=== PATIENT | female | born 1955 | race Two or more races ===

== ENCOUNTER 2021-10-19 20:30 | Inpatient (IN) | payer MEDICAID ==
[~2021-10-19] VITALS: Ht 154.9 cm; Wt 75.1 kg
--- NOTE | 2021-10-19 20:36 | NUR ---
[place] MACHINE OPERATORAVIONICS SYSTEMS INTEGRATION SPECIALIST NOTE PATIENT BROUGHT IN BY EMT AT THIS TIME DIRECT ADMIT VIA GURPRINCESS. SkyeOX4. NO S/S OF APPARENT DISTRESS ON ROOM AIR. DENIES PAIN AND DISCOMFORT. PATIENT ACCOMPANIED BY 2 SONS. PATIENT WISHES TO BE FULL CODE. DENIES SMOKING AND ALCOHOL. DENIES ANY ALLERGIES. ID BAND ON PATIENT. BELONGINGS CHECKED AND CHARTED-- SIGNED BY SON. V/S FOLLOWS: 128/73, T-98.3, HR-65, RR-18, SATURATION 96%. TELE MONITOR READING SR 61. R. AC PATENT AND INTACT JUST ON SALINE LOCK. WILL FOLLOW THROUGH DOCTOR'S ORDERS.
[2021-10-19] MEDS ORDERED: ALPRAZOLAM 0.25 MG TABLET PO PRN (21:00)
[2021-10-19] MEDS ORDERED: LABETALOL 20 MG/4 ML VIAL IV PRN (21:00)
[2021-10-19] MEDS ORDERED: MORPHINE SULFATE INJ 2 MG/ML DISP.SYRIN IV PRN (21:00)
[2021-10-19] MEDS ORDERED: ONDANSETRON HCL/PF 4 MG/2 ML VIAL IVP PRN (21:00)
--- NOTE | 2021-10-19 21:30 | NUR ---
RADIO ENGINEERING TEACHER NOTE GRANDDAUGHTEROLGA CALLED REGARDING PATIENT AND SAID PROCEDURE. PER GRANDDAUGHTER SHE WANTS TO BE CALLED WHEN DOCTOR EXPLAIN THE PROCEDURE TO THE PATIENT. GRANDDAUGHTER'S NUMBER . WILL ENDORSE THIS TO MORNING SHIFT RN.
[2021-10-19 21:35] VITALS: BP 128/73
[2021-10-19] MEDS: IBUPROFEN 400 MG TABLET PO SCH (22:16)
[2021-10-19] MEDS: METOPROLOL TARTRATE 50 MG TABLET PO SCH (22:16)
[2021-10-19] MEDS: ATORVASTATIN 10 MG TABLET PO SCH (22:17)
[2021-10-19] MEDS: ENOXAPARIN SODIUM 40 MG/0.4 ML DISP.SYRIN SQ SCH (22:19)
[2021-10-20 01:03] VITALS: BP 95/55
--- NOTE | 2021-10-20 03:43 | NUR ---
GEEK SQUAD MANAGER NOTE MRSA SWAB DONE AT THIS TIME. COVID ANTIGEN ORDERED.
[2021-10-20 04:18] VITALS: BP 106/68
[2021-10-20] MEDS: METOPROLOL TARTRATE 50 MG TABLET PO SCH ×3 (05:00→20:55)
[2021-10-20 06:33] LABS: BASOPHILS # (AUTO) 0.1 K/uL (0.0-0.2); BASOPHILS % (AUTO) 0.7 % (0.0-2.0); EOSINOPHILS % (AUTO) 2.8 % (0.0-6.0); HEMATOCRIT 42 % (33-45); LYMPHOCYTES # (AUTO) 2.1 K/uL (0.8-4.8); LYMPHOCYTES % (AUTO) 22.9 % (20.0-44.0); MEAN CORPUSCULAR HGB CONC 34 g/dl (31.0-36.0); MEAN CORPUSCULAR VOLUME 89 fL (82-100); MONOCYTES # (AUTO) 0.6 K/uL (0.1-1.30); MONOCYTES % (AUTO) 6.3 % (2.0-12.0); NEUTROPHILS # (AUTO) 6.2 K/uL (1.8-8.9); NEUTROPHILS % (AUTO) 67.3 % (43.0-81.0); PLATELET COUNT (AUTO) 191 K/uL (150-450); RED BLOOD CELL COUNT(AUTO) 4.67 MIL/uL (4.0-5.2); WHITE BLOOD COUNT (AUTO) 9.2 K/uL (4.3-11.0)
--- NOTE | 2021-10-20 07:30 | NUR ---
CLIP LOADING MACHINE FEEDER OPENING NOTES RECEIVED PATIENT ON BED AWAKE AND A/O X4. ON ROOM AIR TOLERATING WELL. NO SOB NOTED. NOT IN DISTRESS. WITH NO COMPLAINTS OF PAIN OR DISCOMFORT AT THIS TIME. WITH IV ACCESS AT RIGHT AC G20 SALINE LOCKED, PATENT AND INTACT. SAFETY MEASURES IN PLACED. CALL LIGHT WITHIN REACH. BED ON LOWEST LOCKED POSITION, SIDE RAILS UP X2. WILL CONTINUE TO MONITOR.
--- NOTE | 2021-10-20 07:35 | NUR ---
ms rn note no significant change. report given to kaveh for continuity of care.
[2021-10-20 07:56] LABS: ALBUMIN 3.9 g/dL (3.4-5.0); BILIRUBIN,TOTAL 0.4 mg/dL (0.2-1.0); CALCIUM, SERUM 9.1 mg/dL (8.5-10.1); CREATININE 1.5 mg/dL (0.6-1.3); MAGNESIUM 2.5 mg/dL (1.8-2.4); PHOSPHORUS 5.2 mg/dL (2.5-4.9); POTASSIUM 4.4 mmol/L (3.5-5.1); TOTAL PROTEIN, SERUM 8.3 g/dL (6.4-8.2)
[2021-10-20 08:00] VITALS: BP 107/75
[2021-10-20] MEDS: LEVOTHYROXINE SODIUM 125 MCG TABLET PO SCH (09:45)
[2021-10-20] MEDS: PANTOPRAZOLE 40 MG TABLET.DR PO SCH (09:45)
[2021-10-20] MEDS: IBUPROFEN 400 MG TABLET PO SCH ×3 (09:45→16:16)
[2021-10-20] MEDS: COLCHICINE 0.6 MG TABLET PO SCH ×2 (09:45→16:16)
[2021-10-20 12:00] VITALS: BP 105/70
[2021-10-20] MEDS ORDERED: LISI20TA PO (14:07)
[2021-10-20 16:00] VITALS: BP 131/79
[2021-10-20] MEDS: LISINOPRIL (20MG) 20 MG TABLET PO SCH (16:16)
--- NOTE | 2021-10-20 18:50 | NUR ---
DIE ATTACHING MACHINE TENDER CLOSING NOTES PATIENT ON BED AWAKE AND A/O X4. ON ROOM AIR TOLERATING WELL. NO SOB NOTED. NOT IN DISTRESS. WITH NO COMPLAINTS OF PAIN OR DISCOMFORT AT THIS TIME. WITH IV ACCESS AT RIGHT AC G20 SALINE LOCKED, PATENT AND INTACT. DUE MEDS GIVEN. ON TELE MONITOR CURRENTLY READING SINUS BRADYCARDIA AT 58BPM. SAFETY MEASURES IN PLACED. CALL LIGHT WITHIN REACH. BED ON LOWEST LOCKED POSITION, SIDE RAILS UP X2. WILL ENDORSE TO NEXT SHIFT FOR BRE.
--- NOTE | 2021-10-20 19:24 | NUR ---
INDUSTRIAL TECHNICIAN OPENING NOTES RECEIVED PT AWAKE IN BED. A/O X4. PT STABLE ON ROOM AIR. NO SOB OR S/S OF RESPIRATORY DISTRESS NOTED. IV ACCESS RIGHT AC 20 GAUGE SL, INTACT AND PATENT. ON EXTERNAL NURSERY SUPERVISOR CURRENTLY READING SINUS BRADYCARDIA AT 58 BPM. SAFETY PRECAUTIONS IN PLACE. BED IN LOWEST LOCKED POSITION, HOB ELEVATED, SIDE RAILS UP X3, CALL LIGHT AND TABLE WITHIN REACH. WILL CONTINUE WITH PLAN OF CARE.
[2021-10-20 20:00] VITALS: BP 115/66
[2021-10-20] MEDS: ENOXAPARIN SODIUM 40 MG/0.4 ML DISP.SYRIN SQ SCH (21:00)
--- NOTE | 2021-10-20 21:55 | NUR ---
RN NOTE HELD LOVENOX FOR UPCOMING PROCEDURE.
[2021-10-20] MEDS: ATORVASTATIN 10 MG TABLET PO SCH (21:56)
[2021-10-21] VITALS (10 sets, daily range): BP systolic 96–147; BP diastolic 44–111
[2021-10-21] MEDS ORDERED: IV NS 0.9% 1,000 ML IV ONE
[2021-10-21] MEDS: METOPROLOL TARTRATE 50 MG TABLET PO SCH ×3 (04:30→20:23)
--- NOTE | 2021-10-21 06:54 | NUR ---
SUPPLY CHAIN DIRECTOR CLOSING NOTES PT AWAKE IN BED. A/O X4. PT STABLE ON ROOM AIR. NO SOB OR S/S OF RESPIRATORY DISTRESS NOTED. IV ACCESS RIGHT AC 20 GAUGE RUNNING NS @ 100 ML/HR, INTACT AND PATENT. ON EXTERNAL RAMP SERVICE MAN CURRENTLY READING SINUS BRADYCARDIA AT 58 BPM. SAFETY PRECAUTIONS IN PLACE AT ALL TIMES. BED IN LOWEST LOCKED POSITION, HOB ELEVATED, SIDE RAILS UP X3, CALL LIGHT AND TABLE WITHIN REACH. WILL ENDORSE TO ONCOMING NURSE FOR BRE.
[2021-10-21 07:18] LABS: BASOPHILS # (AUTO) 0.1 K/uL (0.0-0.2); BASOPHILS % (AUTO) 0.9 % (0.0-2.0); EOSINOPHILS % (AUTO) 3.5 % (0.0-6.0); HEMATOCRIT 41 % (33-45); HEMOGLOBIN 13.9 g/dL (11.5-14.8); LYMPHOCYTES # (AUTO) 1.9 K/uL (0.8-4.8); LYMPHOCYTES % (AUTO) 29.6 % (20.0-44.0); MEAN CORPUSCULAR HGB CONC 34 g/dl (31.0-36.0); MEAN CORPUSCULAR VOLUME 89 fL (82-100); MONOCYTES # (AUTO) 0.5 K/uL (0.1-1.30); MONOCYTES % (AUTO) 7.9 % (2.0-12.0); NEUTROPHILS # (AUTO) 3.8 K/uL (1.8-8.9); NEUTROPHILS % (AUTO) 58.1 % (43.0-81.0); PLATELET COUNT (AUTO) 181 K/uL (150-450); RED BLOOD CELL COUNT(AUTO) 4.64 MIL/uL (4.0-5.2); WHITE BLOOD COUNT (AUTO) 6.5 K/uL (4.3-11.0)
--- NOTE | 2021-10-21 07:35 | NUR ---
RECORD LABEL INTERN OPENING NOTE Patient in bed, awake. A/O x 4, Kazakh speaking. On room air, breathing evenly and unlabored. No SOB or s/s of distress noted. IV access on RAC #20G infusing NS at 100 ml/hr. On tele monitoring showing Sinus bradycardia, HR 58. Safety precautions in place: bed in low, locked position; siderails up x 2; call light within reach. Will continue to monitor.
[2021-10-21 07:45] LABS: ALBUMIN 3.6 g/dL (3.4-5.0); BILIRUBIN,TOTAL 0.3 mg/dL (0.2-1.0); CALCIUM, SERUM 8.9 mg/dL (8.5-10.1); CREATININE 1.6 mg/dL (0.6-1.3); MAGNESIUM 2.3 mg/dL (1.8-2.4); PHOSPHORUS 5.3 mg/dL (2.5-4.9); POTASSIUM 4.3 mmol/L (3.5-5.1); TOTAL PROTEIN, SERUM 7.9 g/dL (6.4-8.2)
[2021-10-21] MEDS: PANTOPRAZOLE 40 MG TABLET.DR PO SCH (09:12)
[2021-10-21] MEDS: LISINOPRIL (20MG) 20 MG TABLET PO SCH ×2 (09:13→17:24)
[2021-10-21] MEDS: LEVOTHYROXINE SODIUM 125 MCG TABLET PO SCH (09:13)
--- NOTE | 2021-10-21 09:30 | NUR ---
RN NOTE Patient's IV site is leaking, IV access removed. New IV inserted on Left wrist #22G. Addendum: 10/21/21 at 1304 by PRINCE ESCALANTE RN CORRECTION: Left hand #22G
--- NOTE | 2021-10-21 11:30 | NUR ---
RN NOTE Patient brought to cath lab nurse for procedure.
[2021-10-21] MEDS ORDERED: NITROGLYCERIN 0.4 MG/TAB BOTTLE ONE (16:30)
[2021-10-21] MEDS ORDERED: IOHEXOL-350 100 ML VIAL IV ONE (16:32)
[2021-10-21] MEDS ORDERED: CT SWABBABLE VALVE TRANS SET 1 EA INFUS.SET MC ONE (16:32)
--- NOTE | 2021-10-21 16:48 | NUR ---
Received in CT ROOM at 1600 hrs. Procedure explained in Colombian and expressed understanding. All questions answered. Procedure started at 1620 hrs. Tolerated well. Completed at 1630 with no untoward reactions.
[2021-10-21] MEDS ORDERED: HEPARIN-LOCK FLUSH PORCINE PF 100 UNITS/1 ML (10 ML)DISP.SYRIN IV SCH (17:00)
--- NOTE | 2021-10-21 19:00 | NUR ---
OIL FIELD LABORER NOTE RECEIVED PATIENT IN BED RESTING ALERT ORIENTED X4 VERBALLY RESPONSIVE ON ROOM AIR O2:94% IV SITE IS ON RIGHT WRIST AND LEFT HAND INTACT PATENT, PERICARDIAL DRAIN INTACT,CONTIENT BOWEL/BLADDER,SAFETY MEASURE IMPLEMENT,BED IN LOW POSITON AND LOCKED,CALL LIGHT WITHIN REACH,HEAD OF THE BED ELEVATED,CONTINUE TO MONITOR.
--- NOTE | 2021-10-21 19:42 | NUR ---
RN NOTES PT FOUND SEMI FOWLERS DISPLAYING NO S/S OF DISTRESS, PT ENDORSES NO PAIN AND IS BREATHING EVEN AND UNLABORED ON RA. PT PERICARDIAL DRAIN IS INTACT, HEPARIN FLUSH GIVEN PER FIELD SALES TRAINER AND TAGEDERM APPLIED. DRESSING IS FREE OF BLOOD OR ANY BODY FLUID. R WRIST 20G L HAND 22G ARE PATIENT AND INTACT. SBAR AND REPORT GIVEN TO CINEMA OR THEATRE MANAGER RN, ALL QUESTIONS ANSWERED. SAFETY MEASURES IN PLACE, BED LOCKED AND IN LOWEST POSITION, SIDE RAILS UPX2, CALL LIGHT WITHIN REACH, PT INSTRUCTED TO CALL FOR ASSISTANCE.
[2021-10-21] MEDS: ENOXAPARIN SODIUM 40 MG/0.4 ML DISP.SYRIN SQ SCH (20:26)
[2021-10-21] MEDS: ATORVASTATIN 10 MG TABLET PO SCH (21:36)
[2021-10-22] VITALS (24 sets, daily range): BP systolic 107–149; BP diastolic 58–101
[2021-10-22] MEDS: HEPARIN-LOCK FLUSH PORCINE PF 100 UNITS/1 ML (10 ML)DISP.SYRIN IV SCH ×4 (01:06→20:14)
[2021-10-22 04:28] LABS: BASOPHILS % (AUTO) 0.7 % (0.0-2.0); EOSINOPHILS % (AUTO) 2.2 % (0.0-6.0); HEMATOCRIT 44 % (33-45); HEMOGLOBIN 15.4 g/dL (11.5-14.8); LYMPHOCYTES # (AUTO) 1.9 K/uL (0.8-4.8); MEAN CORPUSCULAR HGB CONC 35 g/dl (31.0-36.0); MEAN CORPUSCULAR VOLUME 87 fL (82-100); MONOCYTES # (AUTO) 0.5 K/uL (0.1-1.30); MONOCYTES % (AUTO) 6.9 % (2.0-12.0); NEUTROPHILS # (AUTO) 4.7 K/uL (1.8-8.9); NEUTROPHILS % (AUTO) 64.2 % (43.0-81.0); PLATELET COUNT (AUTO) 190 K/uL (150-450); RED BLOOD CELL COUNT(AUTO) 5.11 MIL/uL (4.0-5.2); WHITE BLOOD COUNT (AUTO) 7.3 K/uL (4.3-11.0)
[2021-10-22] MEDS: METOPROLOL TARTRATE 50 MG TABLET PO SCH ×3 (05:01→21:05)
[2021-10-22 05:08] LABS: ALBUMIN 3.7 g/dL (3.4-5.0); BILIRUBIN,TOTAL 0.6 mg/dL (0.2-1.0); CALCIUM, SERUM 9.2 mg/dL (8.5-10.1); CREATININE 1.1 mg/dL (0.6-1.3); MAGNESIUM 2.2 mg/dL (1.8-2.4); PHOSPHORUS 4.5 mg/dL (2.5-4.9); TOTAL PROTEIN, SERUM 8.3 g/dL (6.4-8.2)
--- NOTE | 2021-10-22 06:48 | NUR ---
CLINICAL INFORMATICS SPEC NOTE PATIENT REMAINS ON ALERT ORIENTED X4 VERBALLY RESPONSIVE ON ROOM AIR NO SOB NOT ACUTE DISTRESS NOTED,PERICARDITICS DRAIN DRESSING INTACT,ALL DUE MEDS GIVEN MD ORDERED KEPT CLEAN AND DRY ALL THE TIME,KEPT CALL LIGHT WITHIN REACH,ALL NEEDS MET ENDORSE NEXT COMING SHIFT FOR CONTINUATION OF CARE.
--- NOTE | 2021-10-22 07:29 | NUR ---
RN OPENING NOTE PATIENT RECEIVED IN BED, AWAKE, A&OX4. PATIENT ON ROOM AIR WITH NO SIGNS OF LABORED BREATHING AT THIS TIME. LEFT HAND AND RIGHT WRIST IV SL IN PLACE WITH NO SIGNS OF INFILTRATION AT THIS TIME. PERICARDITIS DRAIN IN PLACE, DRAINED 300 CC OVERNIGHT. BED LOCKED AND IN LOWEST POSITION, CALL LIGHT WITHIN REACH, 2 SIDE RAILS UP. WILL CONTINUE TO MONITOR.
[2021-10-22] MEDS: PANTOPRAZOLE 40 MG TABLET.DR PO SCH (08:04)
[2021-10-22] MEDS: LEVOTHYROXINE SODIUM 125 MCG TABLET PO SCH (08:04)
[2021-10-22] MEDS: LISINOPRIL (20MG) 20 MG TABLET PO SCH ×2 (08:05→16:27)
--- NOTE | 2021-10-22 18:45 | NUR ---
RN CLOSING NOTE PATIENT REMAINS IN BED, AWAKE, A&OX4. PATIENT ON ROOM AIR WITH NO SIGNS OF LABORED BREATHING AT THIS TIME. LEFT HAND AND RIGHT WRIST IV SL IN PLACE WITH NO SIGNS OF INFILTRATION AT THIS TIME. PERICARDITIS DRAIN IN PLACE, DRAINED 150 CC THROUGHOUT SHIFT, PATENT TO FLUSH SCHEDULED EARLIER. ALL NEEDS ATTENDED DURING SHIFT, NO SIGNS OF DISTRESS NOTED. BED LOCKED AND IN LOWEST POSITION, CALL LIGHT WITHIN REACH, 2 SIDE RAILS UP. WILL ENDORSE TO DINING SERVICES DIRECTOR NURSE.
[2021-10-22] MEDS: ENOXAPARIN SODIUM 40 MG/0.4 ML DISP.SYRIN SQ SCH (20:14)
[2021-10-22] MEDS: ATORVASTATIN 10 MG TABLET PO SCH (21:05)
[2021-10-23] VITALS (25 sets, daily range): BP systolic 93–140; BP diastolic 26–83
[2021-10-23 04:24] LABS: BASOPHILS # (AUTO) 0.1 K/uL (0.0-0.2); BASOPHILS % (AUTO) 0.5 % (0.0-2.0); EOSINOPHILS % (AUTO) 1.1 % (0.0-6.0); HEMATOCRIT 45 % (33-45); HEMOGLOBIN 15.5 g/dL (11.5-14.8); LYMPHOCYTES # (AUTO) 3.1 K/uL (0.8-4.8); LYMPHOCYTES % (AUTO) 26.6 % (20.0-44.0); MEAN CORPUSCULAR HGB CONC 35 g/dl (31.0-36.0); MEAN CORPUSCULAR VOLUME 87 fL (82-100); MONOCYTES % (AUTO) 8.2 % (2.0-12.0); NEUTROPHILS # (AUTO) 7.5 K/uL (1.8-8.9); NEUTROPHILS % (AUTO) 63.6 % (43.0-81.0); PLATELET COUNT (AUTO) 183 K/uL (150-450); RED BLOOD CELL COUNT(AUTO) 5.15 MIL/uL (4.0-5.2); WHITE BLOOD COUNT (AUTO) 11.8 K/uL (4.3-11.0)
[2021-10-23 04:42] LABS: ALBUMIN 3.2 g/dL (3.4-5.0); BILIRUBIN,TOTAL 0.8 mg/dL (0.2-1.0); CALCIUM, SERUM 8.7 mg/dL (8.5-10.1); MAGNESIUM 1.9 mg/dL (1.8-2.4); PHOSPHORUS 3.9 mg/dL (2.5-4.9); POTASSIUM 3.7 mmol/L (3.5-5.1); TOTAL PROTEIN, SERUM 7.9 g/dL (6.4-8.2)
[2021-10-23] MEDS: HEPARIN-LOCK FLUSH PORCINE PF 100 UNITS/1 ML (10 ML)DISP.SYRIN IV SCH ×3 (05:32→21:18)
[2021-10-23] MEDS: METOPROLOL TARTRATE 50 MG TABLET PO SCH ×3 (06:05→21:16)
--- NOTE | 2021-10-23 07:18 | NUR ---
RN OPENING NOTE PATIENT RECEIVED IN BED, AWAKE, A&OX4. PATIENT ON ROOM AIR WITH NO SIGNS OF LABORED BREATHING AT THIS TIME. LEFT HAND AND RIGHT WRIST IV SL IN PLACE WITH NO SIGNS OF INFILTRATION AT THIS TIME. PERICARDITIS DRAIN IN PLACE, DRAINED 100 CC OVERNIGHT. BED LOCKED AND IN LOWEST POSITION, CALL LIGHT WITHIN REACH, 2 SIDE RAILS UP. WILL CONTINUE TO MONITOR.
[2021-10-23] MEDS: LISINOPRIL (20MG) 20 MG TABLET PO SCH ×2 (08:05→16:27)
[2021-10-23] MEDS: PANTOPRAZOLE 40 MG TABLET.DR PO SCH (08:05)
[2021-10-23] MEDS: LEVOTHYROXINE SODIUM 125 MCG TABLET PO SCH (08:05)
--- NOTE | 2021-10-23 15:00 | NUR ---
RN NOTE DRAINAGE BAG CHANGED PER MD HOWELL REQUEST. WILL CONTINUE TO MONITOR.
--- NOTE | 2021-10-23 18:34 | NUR ---
RN CLOSING NOTE PATIENT REMAINS IN BED, AWAKE, A&OX4. PATIENT ON ROOM AIR WITH NO SIGNS OF LABORED BREATHING AT THIS TIME. LEFT HAND AND RIGHT WRIST IV SL IN PLACE WITH NO SIGNS OF INFILTRATION AT THIS TIME. PERICARDITIS DRAIN IN PLACE, DRAINED 50 CC THROUGHOUT SHIFT. ALL NEEDS ATTENDED DURING SHIFT, NO SIGNS OF DISTRESS NOTED. BED LOCKED AND IN LOWEST POSITION, CALL LIGHT WITHIN REACH, 2 SIDE RAILS UP. WILL ENDORSE TO ENGINEERING SPECIALIST TECHNICIAN NURSE.
[2021-10-23] MEDS: ATORVASTATIN 10 MG TABLET PO SCH (21:16)
[2021-10-23] MEDS: ENOXAPARIN SODIUM 40 MG/0.4 ML DISP.SYRIN SQ SCH (21:17)
[2021-10-24] VITALS (17 sets, daily range): BP systolic 96–136; BP diastolic 35–87
[2021-10-24] MEDS: ACETAMINOPHEN 325 MG TABLET PO PRN (02:33)
[2021-10-24 04:55] LABS: BASOPHILS # (AUTO) 0.1 K/uL (0.0-0.2); BASOPHILS % (AUTO) 0.9 % (0.0-2.0); EOSINOPHILS % (AUTO) 4.7 % (0.0-6.0); HEMATOCRIT 45 % (33-45); HEMOGLOBIN 15.5 g/dL (11.5-14.8); LYMPHOCYTES # (AUTO) 2.8 K/uL (0.8-4.8); LYMPHOCYTES % (AUTO) 31.1 % (20.0-44.0); MEAN CORPUSCULAR HGB CONC 34 g/dl (31.0-36.0); MEAN CORPUSCULAR VOLUME 88 fL (82-100); MONOCYTES # (AUTO) 0.6 K/uL (0.1-1.30); MONOCYTES % (AUTO) 6.9 % (2.0-12.0); NEUTROPHILS # (AUTO) 5.1 K/uL (1.8-8.9); NEUTROPHILS % (AUTO) 56.4 % (43.0-81.0); PLATELET COUNT (AUTO) 184 K/uL (150-450); RED BLOOD CELL COUNT(AUTO) 5.15 MIL/uL (4.0-5.2)
[2021-10-24] MEDS: METOPROLOL TARTRATE 50 MG TABLET PO SCH (05:00)
[2021-10-24 05:23] LABS: ALBUMIN 3.1 g/dL (3.4-5.0); BILIRUBIN,TOTAL 0.5 mg/dL (0.2-1.0); CALCIUM, SERUM 8.8 mg/dL (8.5-10.1); CREATININE 0.9 mg/dL (0.6-1.3); MAGNESIUM 1.9 mg/dL (1.8-2.4); PHOSPHORUS 3.9 mg/dL (2.5-4.9); POTASSIUM 3.9 mmol/L (3.5-5.1); TOTAL PROTEIN, SERUM 7.4 g/dL (6.4-8.2)
[2021-10-24] MEDS: HEPARIN-LOCK FLUSH PORCINE PF 100 UNITS/1 ML (10 ML)DISP.SYRIN IV SCH (05:29)
--- NOTE | 2021-10-24 07:47 | NUR ---
ICU/RN PATIENT RECEIVED IN BED, AWAKE, A&OX4. PATIENT ON ROOM AIR WITH NO SIGNS OF LABORED BREATHING AT THIS TIME. LEFT HAND IV SL IN PLACE WITH NO SIGNS OF INFILTRATION AT THIS TIME. PERICARDITIS DRAIN IN PLACE. BED LOCKED AND IN LOWEST POSITION, CALL LIGHT WITHIN REACH, 2 SIDE RAILS UP. WILL CONTINUE TO MONITOR. LABS REVIEW. AWARE.
[2021-10-24] MEDS: PANTOPRAZOLE 40 MG TABLET.DR PO SCH (07:56)
[2021-10-24] MEDS: LEVOTHYROXINE SODIUM 125 MCG TABLET PO SCH (07:56)
[2021-10-24] MEDS: IBUPROFEN 400 MG TABLET PO SCH ×3 (08:41→16:32)
[2021-10-24] MEDS: LISINOPRIL (20MG) 20 MG TABLET PO SCH ×2 (08:42→16:32)
--- NOTE | 2021-10-24 09:20 | NUR ---
ICU/RN DUE MEDS ARE GIVEN ORDERED.PT EATS 100% FROM HER MEAL TRAY.CONTINUE MONITORING.
--- NOTE | 2021-10-24 10:00 | NUR ---
ICU/RN PERICARDIAL DRAINAGE CATHETER REMOVED BY DR HOWELL. NO S/S OF BLEEDING NOTED.COVERED WITH DRESSING.FLUIDS SEND TO THE LAB.
--- NOTE | 2021-10-24 13:55 | NUR ---
ICU/RN V/S STABLE,AFEBRILE.NO PAIN REPORTED AT THIS TIME.PT TRANSFERRED TO TELE UNIT ORDERED, IN STABLE CONDITION .
--- NOTE | 2021-10-24 14:10 | NUR ---
LOAN AUDITOR OPENING NOTES RECEIVED Pt IN BED A/Ox4. VITAL SIGNS ARE BP IS :114/56, HR IS 67, RR IS 18, TEMP WAS 98.2. NPt IS ON RA AND TOLERATING WELL NO COMPLAINTS OF PAIN AND NO SIGNS OF DISTRESS AT THIS TIME. SAFEY MEASURES ARE IN PLACE: BED IS LOCKED AND IN LOWEST POSITION, SIDE RAILS UPx3. BED SIDE TABLE ADN CALL LIGHT WITHIN REACH. WILL CONTINUE TO MONITOR
--- NOTE | 2021-10-24 18:31 | NUR ---
SHUTTLE THREADER CLOSING NOTES Pt IS AWAKE IN BED WITH FAMILY AT BEDSIDE. SHE IS A/Ox4 WITH NO COMPLAINTS OF PAIN AND NO SIGNS OF DISTRESS AT THIS TIME. SHE IS ON ROOM AIR AND TOLERATING WELL NO SIGNS OF RESPIRATORY DISTRESS. IV ACCESS ON L HAND IS PATENT AND INTACT. SAFETY MEASURES ARE IN PLACE: BED IS LOCKED AND IN LOWEST POSITION, SIDE RAILS UPx2. BED SIDE TABLE AND CALL LIGHT ARE WITHIN REACH. WILL ENDORSE TO ONCOMING SHIFT.
--- NOTE | 2021-10-24 19:35 | NUR ---
RN NOTES RECEIVED PATIENT AWAKE ON BED, A/OX4, URDU SPEAKING, SR ON TELE MONITOR , HR-68, SON AT BEDSIDE, DENIES PAIN, NO SOB, CALL LIGHT WITHIN REACH, [id number], WILL CONTINUE TO MONITOR
[2021-10-24] MEDS: METOPROLOL TARTRATE 25 MG TABLET PO SCH (21:00)
[2021-10-24] MEDS: ENOXAPARIN SODIUM 40 MG/0.4 ML DISP.SYRIN SQ SCH (21:00)
[2021-10-24] MEDS: ATORVASTATIN 10 MG TABLET PO SCH (21:01)
[2021-10-25] VITALS: BP 102/57
[2021-10-25] MEDS: ACETAMINOPHEN 325 MG TABLET PO PRN ×2 (01:57→18:40)
[2021-10-25 05:00] VITALS: BP 109/59
[2021-10-25 06:07] LABS: BASOPHILS # (AUTO) 0.1 K/uL (0.0-0.2); BASOPHILS % (AUTO) 0.7 % (0.0-2.0); EOSINOPHILS % (AUTO) 6.7 % (0.0-6.0); HEMATOCRIT 43 % (33-45); HEMOGLOBIN 14.4 g/dL (11.5-14.8); LYMPHOCYTES % (AUTO) 37.6 % (20.0-44.0); MEAN CORPUSCULAR HGB CONC 34 g/dl (31.0-36.0); MEAN CORPUSCULAR VOLUME 87 fL (82-100); MONOCYTES # (AUTO) 0.4 K/uL (0.1-1.30); MONOCYTES % (AUTO) 5.5 % (2.0-12.0); NEUTROPHILS # (AUTO) 3.9 K/uL (1.8-8.9); NEUTROPHILS % (AUTO) 49.5 % (43.0-81.0); PLATELET COUNT (AUTO) 193 K/uL (150-450); RED BLOOD CELL COUNT(AUTO) 4.86 MIL/uL (4.0-5.2); WHITE BLOOD COUNT (AUTO) 7.8 K/uL (4.3-11.0)
--- NOTE | 2021-10-25 06:49 | NUR ---
RN NOTES COMPLAINED OF PAIN ON HER UPPER CHEST BUT DENIES CHEST PAIN, OFFERED MORPHINE BUT PT. REFUSED, MORNING CARE RENDERED, CALL LIGHT WITHIN REACH, [id number], PT. NEEDS ATTENDED
--- NOTE | 2021-10-25 07:30 | NUR ---
BAKERY MACHINE MECHANIC SUPERVISOR OPENING NOTES RECEIVED Pt IN BED A/Ox4. ABLE TO MAKE NEEDS KNOWN, NO COMPLAINTS OF PAIN AT THIS TIME, ON RA AND TOLERATING WELL, NO SIGNS OF DISTRESS AT THIS TIME. IV ACCESS ON LEFT HAND G#22, PATENT AND FLUSHES WELL. SAFETY MEASURES ARE IN PLACE: BED IS LOCKED AND IN LOWEST POSITION, SIDE RAILS UPx3. BED SIDE TABLE AND CALL LIGHT WITHIN REACH. WILL CONTINUE TO MONITOR PATIENT ACCORDINGLY. Addendum: 10/25/21 at 0748 by BONNIE BEAVERS RN ON TELE MONITOR READING SHOWING SINUS RHYTHM HR AT 79.
[2021-10-25] MEDS: IBUPROFEN 400 MG TABLET PO SCH ×3 (08:18→16:14)
[2021-10-25] MEDS: PANTOPRAZOLE 40 MG TABLET.DR PO SCH (08:18)
[2021-10-25] MEDS: METOPROLOL TARTRATE 25 MG TABLET PO SCH ×2 (08:18→21:53)
[2021-10-25] MEDS: LEVOTHYROXINE SODIUM 125 MCG TABLET PO SCH (08:18)
[2021-10-25] MEDS: LISINOPRIL (20MG) 20 MG TABLET PO SCH ×2 (08:19→16:14)
[2021-10-25 08:56] VITALS: BP 107/69
[2021-10-25 09:59] LABS: ALBUMIN 3.3 g/dL (3.4-5.0); BILIRUBIN,TOTAL 0.3 mg/dL (0.2-1.0); CALCIUM, SERUM 9.3 mg/dL (8.5-10.1); MAGNESIUM 2.3 mg/dL (1.8-2.4); PHOSPHORUS 4.5 mg/dL (2.5-4.9); TOTAL PROTEIN, SERUM 7.7 g/dL (6.4-8.2)
[2021-10-25 12:00] VITALS: BP_SYST 106; BP_SYST 120; BP_DIAS 64; BP_DIAS 70
--- NOTE | 2021-10-25 12:52 | NUR ---
RN NOTES FOLLOWED UP 2D ECHO AND SPOKE TO MELE. PER MELE, PATIENT HAD 2D ECHO DONE ON 10/22, SHE WOULD LIKE TO VERIFY WITH DR. HOWELL IF REPEAT TEST IS NEEDED. RELAYED MELE CONCERN TO DR. HOWELL. BUT ALSO INFORMED MELE THAT A REPEAT 2DECHO WAS ORDERED BY DR. HOWELL TO BE DONE TODAY FOR CARDIO CLEARANCE PRIOR TO DISCHARGE.
[2021-10-25 15:58] VITALS: BP 128/63
--- NOTE | 2021-10-25 18:25 | NUR ---
SAND MILL OPERATOR CORE SAND CLOSING NOTES PATIENT IN BED A/Ox4. ABLE TO MAKE NEEDS KNOWN, NO COMPLAINTS OF PAIN AT THIS TIME, ON RA AND TOLERATING WELL, NO SIGNS OF DISTRESS AT THIS TIME. IV ACCESS ON LEFT HAND G#22, PATENT AND FLUSHES WELL. SAFETY MEASURES ARE IN PLACE: BED IS LOCKED AND IN LOWEST POSITION, SIDE RAILS UPx3. BED SIDE TABLE AND CALL LIGHT WITHIN REACH. PATIENT IS CLEARED FOR DISCHARGE ON CARDIO STANDPOINT PER DR. HOWELL, FOLLOW UP IN [address] PALOMO MADE AWARE. ALL NEEDS ATTENDED AND MET. DUE MEDS GIVEN ORDERED. WILL ENDORSE TO ONCOMING SHIFT FOR BRE.
--- NOTE | 2021-10-25 19:35 | NUR ---
RN NOTES RECEIVED PATIENT AWAKE ON BED, A/OX4, ALBANIAN SPEAKING, SR ON TELE MONITOR HR-82, DENIES PAIN, NO SOB, CALL LIGHT WITHIN REACH, [id number], WILL CONTINUE TO MONITOR
[2021-10-25 20:00] VITALS: BP_SYST 108; BP_SYST 112; BP_DIAS 58; BP_DIAS 63
[2021-10-25] MEDS: ATORVASTATIN 10 MG TABLET PO SCH (21:52)
[2021-10-25] MEDS: ENOXAPARIN SODIUM 40 MG/0.4 ML DISP.SYRIN SQ SCH (21:53)
[2021-10-26] VITALS: BP 108/58
[2021-10-26 04:00] VITALS: BP 107/61
--- NOTE | 2021-10-26 06:38 | NUR ---
RN NOTES AWAKE, DENIES PAIN, NO SOB, CALL LIGHT WITHIN REACH, [id number], PT. NEEDS ATTENDED
--- NOTE | 2021-10-26 07:32 | NUR ---
CREAM BEATER OPENING NOTES RECEIVED PT IN BED A/Ox4. ABLE TO MAKE NEEDS KNOWN, NO COMPLAINTS OF PAIN AT THIS TIME, PATIENT IS BREATHING EVENLY AND NONLABORED. ON RA AND TOLERATING WELL, NO SIGNS OF DISTRESS AT THIS TIME. IV ACCESS ON LEFT HAND G#22, PATENT AND FLUSHES WELL. SAFETY MEASURES ARE IN PLACE: BED IS LOCKED AND IN LOWEST POSITION, SIDE RAILS UPx3. BED SIDE TABLE AND CALL LIGHT WITHIN REACH. WILL CONTINUE TO MONITOR
[2021-10-26] MEDS: IBUPROFEN 400 MG TABLET PO SCH ×2 (08:02→12:00)
[2021-10-26] MEDS: METOPROLOL TARTRATE 25 MG TABLET PO SCH (08:02)
[2021-10-26] MEDS: LEVOTHYROXINE SODIUM 125 MCG TABLET PO SCH (08:02)
[2021-10-26] MEDS: PANTOPRAZOLE 40 MG TABLET.DR PO SCH (08:02)
[2021-10-26] MEDS: LISINOPRIL (20MG) 20 MG TABLET PO SCH (08:03)
[2021-10-26 08:48] VITALS: BP 110/44
[2021-10-26] MEDS ORDERED: LISI20TA30 PO (10:16)
[2021-10-26] MEDS ORDERED: IBUP-1953 PO (10:16)
[2021-10-26] MEDS ORDERED: ATOR10TA PO (10:16)
[2021-10-26] MEDS ORDERED: METO25TA20 PO (10:16)
[2021-10-26] MEDS ORDERED: LEVO125T PO (10:16)
--- NOTE | 2021-10-26 13:53 | NUR ---
FOREIGN LANGUAGE INSTRUCTOR NOTE RECEIVED DISCHARGE ORDER. PATIENT IS A/O X4. ABLE TO MAKE NEEDS KNOWN, NO COMPLAINTS OF PAIN AT THIS TIME, PATIENT IS BREATHING EVENLY AND NONLABORED. ON RA AND TOLERATING WELL, NO SIGNS OF DISTRESS AT THIS TIME. PATIENT WAS GIVEN DISCHARGE INSTRUCTIONS BOTH VERBALLY AND IN WRITTEN FORM. PATIENT VERBALIZED UNDERSTANDING. PATIENTS BELONGINGS ACCOUNTED FOR AND BELONGINGS SHEET SIGNED. IV ACCESS REMOVED, PRESSURE DRESSING APPLIED. NO BLEEDING NOTED. PATIENT LEFT FACILITY IN STABLE CONDITION VIA PRIVATE CAR
== END 2021-10-26 14:45 | disposition home or self-care (01) | DRG 192 ==
LOC: TELE 20:30 → ICU 10-21 13:51 → TELE 10-24 13:55
PROVIDERS: ADMIT Internal Medicine
PROC: 0W9D30Z Drainage of Pericardial Cavity with Drainage Device, Percutaneous Approach (ICD-10-PCS; principal; 2021-10-21)
PROC: 4A023N7 Measurement of Cardiac Sampling and Pressure, Left Heart, Percutaneous Approach (ICD-10-PCS; 2021-10-26)
PROC: B211YZZ Fluoroscopy of Multiple Coronary Arteries using Other Contrast (ICD-10-PCS; 2021-10-26)
PROC: B41FYZZ Fluoroscopy of Right Lower Extremity Arteries using Other Contrast (ICD-10-PCS; 2021-10-26)
PROC: B31HYZZ Fluoroscopy of Right Upper Extremity Arteries using Other Contrast (ICD-10-PCS; 2021-10-26)
DX: I30.1 Infective pericarditis (principal); I31.4 Cardiac tamponade; N17.0 Acute kidney failure with tubular necrosis; I47.2 Ventricular tachycardia; I31.3 Pericardial effusion (noninflammatory); E03.9 Hypothyroidism, unspecified; E11.9 Type 2 diabetes mellitus without complications; F41.9 Anxiety disorder, unspecified; I10 Essential (primary) hypertension; I25.10 Atherosclerotic heart disease of native coronary artery without angina pectoris; T39.315A Adverse effect of propionic acid derivatives, initial encounter; T50.4X5A Adverse effect of drugs affecting uric acid metabolism, initial encounter; Y92.9 Unspecified place or not applicable
CPT/HCPCS: 33010; 36415; 75574; 80053-TC; 83735-TC; 84100-TC; 85025-TC; 85610-TC; 85730-TC; 87070-TC; 87081-TC; 88108-TC; 88305-TC; 89051-TC; 93307-TC; 93308-TC; G0378; G0500; J1642; J1650; J2270; J7030; Q9967

== ENCOUNTER 2021-11-02 10:18 | Emergency (ER) | payer MEDICAID ==
[~2021-11-02] VITALS: Ht 154.9 cm; Wt 78.0 kg
[~2021-11-02 10:18] MED LIST: ATOR10TA PO; IBUP-1953 PO; LEVO125T PO; LISI20TA30 PO; METO25TA20 PO
[2021-11-02 11:08] VITALS: BP 122/68
== END 2021-11-02 11:09 | disposition home or self-care (01) ==
LOC: ER 10:23
DX: I30.1 Infective pericarditis (principal); I10 Essential (primary) hypertension; E11.9 Type 2 diabetes mellitus without complications; Z79.1 Long term (current) use of non-steroidal anti-inflammatories (NSAID); Z79.811 Long term (current) use of aromatase inhibitors; Z79.02 Long term (current) use of antithrombotics/antiplatelets; Z79.899 Other long term (current) drug therapy